=== PATIENT | female | born 1965 | race Caucasian/White ===

== ENCOUNTER 2018-04-01 04:29 | Emergency (ER) | payer BC ==
[~2018-04-01] VITALS: Ht 165.1 cm; Wt 82.0 kg
[~2018-04-01 04:29] MED LIST: AMOX/K CLAV875 M1 PO; AMOXICILLIN/CL875 MG PO; BUSPIRONE10 MG PO; BUSPIRONE15 M1 OR; CARTIA XT300 MG/24 PO; CHERATUSSIN OR; CIPRODEX1 ML OT; CIPROFLOXACN500 MG PO; COREG12.5 MG PO; DIFLUCAN150 MG PO; FLONASE NASAL50 MCG; LORTAB 5/3255 MG PO; LORTAB5 PO; LOSARTAN POT25 MG PO; MAXZIDE-2537.5 MG/TA OR; MECLIZINE25 MG PO; PERCOCET 5/325M1 TAB PO; TYLOPHEN500 MG PO; WELLBUTRIN150 M1 OR; ZOFRAN4 MG/TAB PO
[2018-04-01] MEDS ORDERED: GENTAMICIN0.3 % OD (05:04)
[2018-04-01] MEDS ORDERED: PERCOCET 5/325M1 TAB PO (05:06)
[2018-04-01 06:18] VITALS: BP 190/100
== END 2018-04-01 06:18 | disposition home or self-care (01) | DRG 125 ==
LOC: ED 04:29
DX: H18.821 Corneal disorder due to contact lens, right eye (principal); H10.31 Unspecified acute conjunctivitis, right eye; I10 Essential (primary) hypertension

== ENCOUNTER 2019-05-16 14:17 | Emergency (ER) | payer BC ==
[~2019-05-16] VITALS: Ht 165.1 cm; Wt 70.0 kg
[~2019-05-16 14:17] MED LIST changes: +GENTAMICIN0.3 % OD
[2019-05-16] MEDS ORDERED: KEFLEX500 M1 PO (15:54)
[2019-05-16 16:00] VITALS: BP 151/90
== END 2019-05-16 16:05 | disposition home or self-care (01) | DRG 914 ==
LOC: ED 14:17
DX: S61.243A Puncture wound with foreign body of left middle finger without damage to nail, initial encounter (principal); I10 Essential (primary) hypertension; W45.8XXA Other foreign body or object entering through skin, initial encounter; Y93.89 Activity, other specified